=== PATIENT | male | born 1950 | race Caucasian/White ===

== ENCOUNTER 2017-01-12 16:43 | Inpatient (IN) | payer BC, OTHER ==
[~2017-01-12] VITALS: Ht 175.3 cm; Wt 90.7 kg
--- NOTE | 2017-01-12 18:09 | NUR ---
INTAKE NOTE Patient is alert and orientated X4. He is a66 year old male admitted for ETOH abuse. Patient is able to answer questions appropriately to be admitted, his gait is steady. Patient is anxious as this is his first time in treatment, BP is elevated 161/84 P 63 T 96.3f O2 97% patient has a medical history of cardiomyopathy, he brought a list of his home medications with him. He is allergic to penicillin. Patient report mariela drinking off and on for the past 4 years. He is unsure if he has had a seizure in the past but if aware of falling and passing out. no family history of substance abuse. Will orientate patient to the unit once patient arrives.
[2017-01-12] MEDS ORDERED: CARV12.52 PO (18:21)
[2017-01-12] MEDS ORDERED: ASPI81TA31 PO (18:21)
[2017-01-12] MEDS ORDERED: SPIR25TA4 PO (18:21)
[2017-01-12] MEDS ORDERED: LOSA25TA13 PO (18:21)
[2017-01-12] MEDS ORDERED: MAGNESIUM HYDROXIDE 30 ML LIQUID UDC PO PRN (19:45)
[2017-01-12] MEDS ORDERED: ONDANSETRON 4 MG/2 ML VIAL IM PRN (19:45)
[2017-01-12] MEDS ORDERED: DICYCLOMINE HCL 20 MG TABLET PO PRN (19:45)
[2017-01-12] MEDS ORDERED: IBUPROFEN 400 MG TABLET PO PRN (19:45)
[2017-01-12] MEDS ORDERED: LORAZEPAM 2 MG/1 ML VIAL IM PRN (19:45)
[2017-01-12] MEDS ORDERED: MAG HYDROX/AL HYDROX/SIMETH 30 ML LIQUID UDC PO PRN (19:45)
[2017-01-12] MEDS ORDERED: LOPERAMIDE HCL 2 MG CAPSULE PO PRN ×2 (19:45)
[2017-01-12] MEDS ORDERED: THIAMINE HCL 200 MG/2 ML VIAL IM ONE (19:45)
[2017-01-12] MEDS ORDERED: MIRALAX 17 GM POWD.PACK PO PRN (19:45)
[2017-01-12] MEDS ORDERED: diphenhydrAMINE 50 MG CAPSULE PO PRN (19:45)
[2017-01-12] MEDS ORDERED: HYDROXYZINE PAMOATE 25 MG CAPSULE PO PRN (19:45)
[2017-01-12] MEDS ORDERED: ONDANSETRON ODT 4 MG TAB.RAPDIS SL PRN (19:45)
[2017-01-12] MEDS ORDERED: CLONIDINE HCL 0.1 MG TABLET PO PRN (19:45)
[2017-01-12] MEDS ORDERED: LORAZEPAM 1 MG TABLET PO PRN ×2 (19:45)
[2017-01-12] MEDS ORDERED: ACETAMINOPHEN 325 MG TABLET PO PRN (19:45)
[2017-01-12 20:00] VITALS: BP 146/90
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
[2017-01-12] MEDS: CARVEDILOL 12.5 MG TABLET PO SCH (20:30)
[2017-01-12 20:42] LABS: BASOPHILS % (AUTO) 0.2 % (0.0-2.0); EOSINOPHILS % (AUTO) 0.6 % (0.0-7.0); HEMATOCRIT 41.1 % (40-50); HEMOGLOBIN 14.2 G/DL (14.0-18.0); LYMPHOCYTES # (AUTO) 0.9 K/UL (0.8-4.8); LYMPHOCYTES % (AUTO) 19.3 % (20.5-51.5); MEAN CORPUSCULAR HEMOGLOBIN 32.9 UUG (27.0-31.0); MEAN CORPUSCULAR HGB CONC 35 g/dL (32.0-37.0); MEAN CORPUSCULAR VOLUME 94.9 FL (82.0-92.0); MONOCYTES # (AUTO) 0.7 K/UL (0.1-1.30); MONOCYTES % (AUTO) 14.8 % (0.0-11.0); NEUTROPHILS # (AUTO) 3.1 K/UL (1.8-8.9); NEUTROPHILS % (AUTO) 65.1 % (38.5-71.5); PLATELET COUNT (AUTO) 185 K/UL (150-450); RED BLOOD CELL COUNT(AUTO) 4.33 MIL/UL (4.7-6.1); WHITE BLOOD COUNT (AUTO) 4.7 K/UL (4.0-11.2)
[2017-01-12 20:44] LABS: ALANINE AMINOTRANSFERASE 38 U/L (16-63); ALKALINE PHOSPHATASE 131 U/L (50-136); AMYLASE 66 U/L (25-115); ASPARTATE AMINOTRANSFERASE 37 U/L (15-37); BILIRUBIN,TOTAL 1.2 mg/dL (0.2-1.0); CARBON DIOXIDE 27 mmol/L (21-32); CHLORIDE 95 mmol/L (98-107); CREATININE 1.2 mg/dL (0.6-1.3); GLUCOSE 143 mg/dL (74-106); LIPASE 386 U/L (73-393); MAGNESIUM 1.9 mg/dL (1.8-2.4); POTASSIUM 4.2 mmol/L (3.5-5.1); TOTAL PROTEIN, SERUM 8.2 g/dL (6.4-8.2); UREA NITROGEN, BLOOD 22 mg/dL (7-18)
[2017-01-12 20:52] LABS: ETHANOL < 3 MG/DL (0-0)
[2017-01-12] MEDS: ASPIRIN 81 MG TAB.CHEW PO SCH (21:00)
[2017-01-12] MEDS: LOSARTAN POTASSIUM 25 MG TABLET PO SCH (21:00)
--- NOTE | 2017-01-12 21:00 | NUR ---
MEDICATION REFUSAL Pt refused his Coreg, Aspirin, and Cozaar. Pt stated he took these medications prior to admission. Will continue to monitor.
[2017-01-12 21:04] LABS: THYROID STIMULATING HORMONE 1.104 mIU/mL (0.358-3.740)
--- NOTE | 2017-01-12 21:23 | NUR ---
PRN BENADRYL Pt complains of inability to sleep. PRN Benadryl administered as ordered. Breathing is even and unlabored, safety measures in place. Will monitor effectiveness.
[2017-01-12 22:16] LABS: *AMPHETAMINE, URINE NEGATIVE (NEGATIVE); *BARBITURATE, URINE NEGATIVE (NEGATIVE); *CANNABINOID, URINE NEGATIVE (NEGATIVE); *COCCAINE, URINE NEGATIVE (NEGATIVE); *OPIATE, URINE NEGATIVE (NEGATIVE); *PHENCYCLIDINE SCREEN,URINE NEGATIVE (NEGATIVE)
--- NOTE | 2017-01-12 22:23 | NUR ---
PRN BENADRYL REASSESSMENT PRN medication effective. Pt lying in bed with eyes closed noted to be asleep. Respirations 16, breathing is even and unlabored, safety measures in place. Will monitor.
--- NOTE | 2017-01-12 23:56 | NUR ---
PRN CLONIDINE/ATIVAN Pt observed to be anxious and restless CIWA 7. Pt noted with increased BP of 154/104 HR: 60. PRN clonidine and Ativan administered as ordered. Breathing even and unlabored, safety measures in place. Will monitor effectiveness.
[2017-01-13] VITALS (7 sets, daily range): BP systolic 131–154; BP diastolic 86–104
--- NOTE | 2017-01-13 01:00 | NUR ---
PRN CLONIDINE/ATIVAN REASSESSMENT PRN medications effective. Pt reports he feels less anxious. BP: 135/90, HR:64. CIWA:5. Safety measures in place, pt refuses side rails to be up, call light within reach. Will continue to monitor.
--- NOTE | 2017-01-13 07:05 | NUR ---
END OF SHIFT Pt is a 66 year old male admitted on 01/12/17 for ETOH dependency. Pt reports a PMHx of depression, ICD implant (2014) and cardiomyopathy. Pt is full code with allergy to PCN. He denies any history of seizures. [id number] pt received PRN Benadryl, at 2356 pt received PRN Clonidine and PRN Ativan. He slept a total of 8 hrs, Intake:810mL Void:x3 BM:0 CIWA: 4. Pt remains alert and oriented x4, breathing is even and unlabored. Safety measures in place. Endorsed to oncoming shift.
[2017-01-13] MEDS ORDERED: TUBERCULIN,PURIF.PROT.DERIV. 5 TU/0.1 ML TEST ID ONE (09:00)
[2017-01-13] MEDS ORDERED: SPIRONOLACTONE 25 MG TABLET PO SCH ×2 (09:00→17:00)
[2017-01-13] MEDS: FOLIC ACID 1 MG TABLET PO SCH (09:01)
[2017-01-13] MEDS: THIAMINE HCL 100 MG TABLET PO SCH (09:01)
[2017-01-13] MEDS: CARVEDILOL 12.5 MG TABLET PO SCH ×2 (09:01→16:36)
[2017-01-13] MEDS: MULTIVITAMINS,THERAPEUTIC TABLET PO SCH (09:01)
--- NOTE | 2017-01-13 09:10 | NUR ---
START OF SHIFT Patient is 66yo male admitted for supervised withdrawal. Patient reports he was binge drinking alcohol. Alert and oriented X4, full code with allergy to penicillin. On assessment this AM: CIWA 2. Denies SOB, chest pain, dizziness. Vitals signs: 136/86, HR 60, RR16, 99% 02 sat RA, T 97.9, 0/10 pain. Reports anxiety. Denies headache, body ache, numbing/tingling sensation, nausea, vomiting, diarrhea. Med compliant with AM meds. Patient has scheduled 0900 spironolactone but patient wants to take it at 1400pm along with his next dose of carvedilol, will notify MD. Refused PPD skin test today and wants chest x-ray instead. Encouraged patient to hydrate with fluids. Patient is tolerating breakfast without n/v. Patient was encouraged to attend group meetings today. Will continue to monitor patient.
--- NOTE | 2017-01-13 14:26 | NUR ---
Client was prompted by therapist to attend daily group therapy sessions. Client stated that he would attend if he was able to.
[2017-01-13] MEDS ORDERED: TRAZODONE 50 MG TABLET PO PRN (17:15)
--- NOTE | 2017-01-13 17:15 | NUR ---
MD COMMUNICATION Patient was requesting for a different sleep med for tonight. Md was notified. Telephone order received from MD for trazodone 50mg po hs prn for insomnia and read back for confirmation.
[2017-01-13 17:27] LABS: *AMPHETAMINE, URINE NEGATIVE (NEGATIVE); *BARBITURATE, URINE NEGATIVE (NEGATIVE); *CANNABINOID, URINE NEGATIVE (NEGATIVE); *COCCAINE, URINE NEGATIVE (NEGATIVE); *OPIATE, URINE NEGATIVE (NEGATIVE); *PHENCYCLIDINE SCREEN,URINE NEGATIVE (NEGATIVE)
--- NOTE | 2017-01-13 19:20 | NUR ---
Start of Shift Note Patient endorsement received from Am shift nurse. Patient admitted on 01-12-17 for Alcohol detox. Patient remains on PRN ativan with no physical complaints of withdrawal symptoms. His last CIWA was 2, and he required no PRN medications during day shift. He had a CXR completed today. He is on fall and seizure precautions. He remains with symptoms of anxiety, but denies any SI or HI. His mood is stable. Patient with history of cardiomyopathy and an ICD implanted in 2014. Currently resting in bed, with bed in lowest locked position call light in reach.
[2017-01-13] MEDS: ASPIRIN 81 MG TAB.CHEW PO SCH (20:44)
[2017-01-13] MEDS: LOSARTAN POTASSIUM 25 MG TABLET PO SCH (20:45)
--- NOTE | 2017-01-13 20:50 | NUR ---
PRN MEDICATION Trazodone 50mg PO administered at 0 PM per patient request. Stating "I just need something to help me sleep"
--- NOTE | 2017-01-13 21:51 | NUR ---
REASSESSMENT OF PATIENT FOLLOWING PRN patient reassessed one hour after PRN Trazodone 50mg administered for insomnia. Patient in bed, eyes closed, with no complaints. Patient breathing even and non labored. Call light in reach, bed in locked lowest position.
--- NOTE | 2017-01-14 | NUR ---
CIWA Deferred: CIWA deferred for sleep. All safety precautions are in place. Will continue to monitor. Refused vital signs stating "I really need to sleep" patient lying comfortably in bed respirations 16, breathing even and non labored
--- NOTE | 2017-01-14 04:40 | NUR ---
vital signs refused/CIWA deferred: CIWA deferred for sleep. All safety precautions in place. Will continue to monitor. Refused vital signs requesting to sleep. Patient lying comfortably in bed respirations 18, breathing is even and non labored
--- NOTE | 2017-01-14 07:01 | NUR ---
END OF SHIFT NOTE Pt is a 66 year old male admitted on 01/12/17 for ETOH dependency. Pt reports a PMH of depression, ICD implant (2014) and cardiomyopathy. Pt is full code with allergy to PCN. He denies any history of seizures. At 2049 pt received PRN Trazodone 50mg with good effect , sleeping a total of 8.5 hours. Intake: 1050 ml, Void:x1, BM:0 CIWA: 4. Last vitals 140/100, 62, 18, 98%, 98.4. Denies pain. No PRN Ativan administered per CIWA score and patient stating he feels good. Pt remains alert and oriented x4, breathing is even and unlabored. Safety measures in place. Endorsed to oncoming AM shift.
[2017-01-14] MEDS ORDERED: TRAZ-144 PO (07:50)
[2017-01-14] MEDS ORDERED: CLON0.1T14 PO (07:50)
[2017-01-14 07:52] LABS: POTASSIUM 4.4 mmol/L (3.5-5.1)
[2017-01-14 08:00] VITALS: BP 140/93
[2017-01-14] MEDS: MULTIVITAMINS,THERAPEUTIC TABLET PO SCH (08:06)
[2017-01-14 08:07] VITALS: BP 140/93
[2017-01-14] MEDS: FOLIC ACID 1 MG TABLET PO SCH (08:07)
[2017-01-14] MEDS: THIAMINE HCL 100 MG TABLET PO SCH (08:07)
[2017-01-14] MEDS: CARVEDILOL 12.5 MG TABLET PO SCH (08:07)
--- NOTE | 2017-01-14 08:12 | NUR ---
START OF SHIFT Patient is 66yo male admitted for supervised withdrawal from alcohol. Alert and oriented X4, full code with allergy to penicillin. On assessment this AM: CIWA 1. Denies SOB, chest pain, dizziness. Vitals signs: 140/93, HR 63, RR18, 99% 02 sat RA, T 98.1, 0/10 pain. Patient has ICD on L chest. Reports mild anxiety. Denies headache, body ache, numbing/tingling sensation, nausea, vomiting, diarrhea. Med compliant with AM meds. Encouraged patient to hydrate with fluids. Patient is tolerating breakfast without n/v. Pending discharge today. Will continue to monitor patient.
--- NOTE | 2017-01-14 09:35 | NUR ---
Discharge note Patient is stable condition. Vitals signs WNL, patient is alert and oriented X4. Denies suicidal or homicidal ideation. All discharge paperwork completed, dated and signed. Patient was educated about the discharge instructions. Patient was discharged from [facility] on 01/14/17 at 0935am. Patient left the facility with all his belongings. Patient did not report any concerns at the time of his discharge.
[2017-01-14 12:08] LABS: HEPATITIS B SURFACE AG Negative (Negative)
== END 2017-01-14 09:32 | disposition other institution (70) | DRG 895 ==
LOC: SRC 17:18
PROVIDERS: ADMIT Internal Medicine; ATTEND Internal Medicine
PROC: HZ2ZZZZ Detoxification Services for Substance Abuse Treatment (ICD-10-PCS; principal; 2017-01-12)
PROC: HZ31ZZZ Individual Counseling for Substance Abuse Treatment, Behavioral (ICD-10-PCS; 2017-01-14)
DX: F10.230 Alcohol dependence with withdrawal, uncomplicated (principal); E87.1 Hypo-osmolality and hyponatremia; I42.6 Alcoholic cardiomyopathy; I50.22 Chronic systolic (congestive) heart failure; R17 Unspecified jaundice; Y90.0 Blood alcohol level of less than 20 mg/100 ml; I49.5 Sick sinus syndrome; Z95.810 Presence of automatic (implantable) cardiac defibrillator; Z79.899 Other long term (current) drug therapy; Z79.82 Long term (current) use of aspirin; Z81.1 Family history of alcohol abuse and dependence
CPT/HCPCS: 36415; 71010; 80307; 83690; 83735; 84443; 85025; 86580; 86592; 86705; 86803; 87340; 87806; 93005; A4663; G0480; J3411; Q0163